=== PATIENT | female | born 1945 | race African-American/Black ===

== ENCOUNTER 2017-01-17 06:18 | Day surgery (SDC) | payer OTHER ==
[2017-01-14 08:58] LABS: HEMATOCRIT 39.6 % (36.0-48.0); HEMOGLOBIN 13.3 g/dL (12.0-16.0)
[2017-01-14 09:12] LABS: BUN (BLOOD UREA NITROGEN) 17 MG/DL (6-23); CALCIUM, SERUM 8.9 MG/DL (8.5-10.4); CHLORIDE, SERUM 104 MMOL/L (96-112); CO2 (CARBON DIOXIDE) 32 MMOL/L (24-34); CREATININE 0.82 MG/DL (0.55-1.02); GFR AFRICAN AMERICAN 82 ML/MIN (>=60); GFR NON AFRICAN AMERICAN 71 ML/MIN (>=60); GLUCOSE, SERUM 120 MG/DL (60-99); POTASSIUM, SERUM 3.4 MMOL/L (3.5-5.3); SODIUM, SERUM 143 MMOL/L (135-148)
--- NOTE | ~2017-01-17 | OP ---
Record Of Operation [facility] [address] [place]. [address] NAME: BETTY ESPINOZA : 41 [place]US [place] [facility] [place] [id number] AGE: 71 ADM/REG DATE : 01/17/17 MR#: [id number] REPORT SERV DATE: 01/17/17 DICTATED BY: LVEON CUI DATE: 01/17/17 REPORT STATUS : Draft TRANSCRIBED BY: MODPrabhjot DATE: 01/17/17 DATE OF PROCEDURE: 01/17/2017 PREOPERATIVE DIAGNOSES: Left L4-5 and L5-S1 disk herniation, foraminal stenosis, nerve compression, and lumbar radiculopathy. POSTOPERATIVE DIAGNOSES: Left L4-5 and L5-S1 disk herniation, foraminal stenosis, nerve compression, and lumbar radiculopathy. PROCEDURES: Left L4-5 and L5-S1 microdiskectomy, use of operative microscope, minimal access spine technology, and intraoperative O-arm CT scan with computer navigation. SURGEON: Levon Cui DO. ANESTHESIA: General. ESTIMATED BLOOD LOSS: 10 mL. COMPLICATIONS: None. INDICATIONS: The patient is a pleasant 71-year-old with intractable left leg pain, failed conservative treatment. After discussion of the risks and benefits, elected to proceed with the surgery. DESCRIPTION OF PROCEDURE: I identified the patient in the holding area. Consent was obtained. Went to the operating room. Underwent general anesthesia with endotracheal intubation. Prepped and draped in the usual sterile fashion. Operative safety pause was performed, then we proceeded with the surgery. The O-arm registration frame was placed in the iliac crest. O-arm was brought in for an intraoperative CT scan. Computer registration materials were verified. Under computer guidance, a left longitudinal incision was made over the L4-S1 level taken down through the fascial layer. The tube dilators were used to minimally invasively dissect down to the left L4-5 interspace. Operative microscope was brought in. A afshan was used to perform a laminotomy. Jayden performed a foraminotomy. Disk was incised and free disk material was removed with pituitary. The L4 and L5 nerve roots were free of compression. This was repeated again at the L5-S1 level. Irrigation was performed. Hemostasis was achieved. 40 mg Depo-Medrol was injected over the nerve roots. Layered closure was performed. Sterile dressings were applied. The patient was awoken and extubated, and taken to the recovery room in stable condition. OPERATIVE FINDINGS: Left L4-5 and L5-S1 disk herniation, and foraminal stenosis. PHILL/BRANDON Levon Hernandez Record Of Operation [address] [address] NAME: BETTY ESPINOZA : 41 STATUS : REG [place] PAT#: [id number] AGE: 71 ADM/REG DATE : 01/17/17 MR#: [id number] REPORT SERV DATE: 01/17/17 DICTATED BY: LEVON CUI DATE: 01/17/17 REPORT STATUS : Draft TRANSCRIBED BY: MODL DATE: 01/17/17 DO See / [id number] CC: DO Winston Holt M.D.
[~2017-01-17 06:18] MED LIST: ASAB PO; CAT1 PO; CENTRUM SILVER PO; DIOVAN HCT320 MG/25 PO; MICRO-K10 MEQ PO; MULTIPLE VIT PO; NORV10 PO; NORV5 PO; OMEGA 3; OMEGA 3550 MG PO; PRILO PO
== END 2017-01-17 19:07 | disposition home or self-care (01) ==
LOC: SDC 06:18
PROVIDERS: Orthopaedic Surgery
PROC: 01NB0ZZ Release Lumbar Nerve, Open Approach (ICD-10-PCS; 2017-01-17)
PROC: 0ST20ZZ Resection of Lumbar Vertebral Disc, Open Approach (ICD-10-PCS; principal; 2017-01-17 08:00)
DX: M51.16 Intervertebral disc disorders with radiculopathy, lumbar region (principal); M48.06 Spinal stenosis, lumbar region; M51.36 Other intervertebral disc degeneration, lumbar region; M19.90 Unspecified osteoarthritis, unspecified site; I51.7 Cardiomegaly; K21.9 Gastro-esophageal reflux disease without esophagitis; I10 Essential (primary) hypertension; E04.9 Nontoxic goiter, unspecified; D64.9 Anemia, unspecified; Z90.49 Acquired absence of other specified parts of digestive tract; Z88.8 Allergy status to other drugs, medicaments and biological substances; Z90.710 Acquired absence of both cervix and uterus; Z96.651 Presence of right artificial knee joint
CPT/HCPCS: 80048; 82962; 85014; 85018; 88304; 88311; 93005; 94640; A9270-GY; J0690; J1030; J2250; J2370; J2405; J2710; J3010